=== PATIENT | male | born 1970 | race Caucasian/White ===

== ENCOUNTER 2017-08-22 14:36 | Inpatient (IN) | payer OTHER ==
[~2017-08-22] VITALS: Ht 177.8 cm; Wt 79.6 kg
[2017-08-22 15:45] LABS: HEMATOCRIT 38.4 % (38.0-50.0); MCH 31.2 PG (29.0-34.0); MCHC 36.5 G/DL (30.0-36.0); MCV 85.5 FL (86-99); PLATELET COUNT 203 K/uL (156-360); RBC DIS.WIDTH-CV 12.1 % (11.8-14.6); RBC DIS.WIDTH-SD 37.9 % (39-53); RED BLOOD COUNT 4.49 M/uL (4.00-5.50); WHITE BLOOD COUNT 11.3 K/uL (4.1-10.2)
[2017-08-22 15:52] LABS: ALBUMIN 4.2 g/dL (3.2-4.8)
[2017-08-22 15:53] LABS: CHLORIDE 99 mEq/L (99-109); POTASSIUM 3.6 mEq/L (3.7-5.4); SODIUM 134 mEq/L (136-147)
[2017-08-22 15:55] LABS: GLUCOSE 167 mg/dL (70-99); TOTAL PROTEIN 6.9 g/dL (6.4-8.3)
[2017-08-22 15:57] LABS: TOTAL BILIRUBIN 0.5 mg/dL (0.0-1.0)
[2017-08-22 15:58] LABS: ALKALINE PHOSPHATASE 73 IU/L (3-129)
[2017-08-22 15:59] LABS: CREATININE 0.8 mg/dL (0.6-1.3); GFR ESTIMATE (CALCULATED) > 59 mL/min/ (58.99-99999)
[2017-08-22 16:00] LABS: AST (GOT) 15 IU/L (2-34); UREA NITROGEN (BUN) 6 mg/dL (9-23)
[2017-08-22 16:01] LABS: ALT (GPT) 14 IU/L (3-49)
[2017-08-22 16:02] LABS: LIPASE 25 U/L (1.0-51.0)
[2017-08-22 16:14] LABS: APPEARANCE CLEAR ((CLEAR)); BILIRUBIN NEGATIVE; BLOOD NEGATIVE; COLOR COLORLESS ((YELLOW)); GLUCOSE (STRIP) 150; KETONES NEGATIVE; LEUKOCYTES NEGATIVE; NITRITE NEGATIVE; PROTEIN (STRIP) NEGATIVE; SPECIFIC GRAVITY 1.006 (1.000-1.030); UCUL ADDED? NO; UROBILINOGEN 0.2 MG/DL (0.2-1.0)
[2017-08-22 17:19] LABS: INTER. NORMALIZED RATIO 1.1
[2017-08-22] MEDS ORDERED: LISINOPRIL5 MG PO (18:00)
[2017-08-22] MEDS ORDERED: HYDROCHLOROTHIA25 MG PO (18:00)
[2017-08-22] MEDS ORDERED: ADULT ASPIRIN81 MG PO (18:01)
[2017-08-22] MEDS ORDERED: METFORMIN HCL1000 MG PO (18:01)
[2017-08-22] MEDS ORDERED: VITAMIN D31000 UNIT PO (18:01)
[2017-08-22 22:24] VITALS: BP 133/71
[2017-08-23 04:15] VITALS: BP 118/65
[2017-08-23 05:59] LABS: HEMATOCRIT 37.7 % (38.0-50.0); MCH 30.3 PG (29.0-34.0); MCHC 34.5 G/DL (30.0-36.0); MCV 87.9 FL (86-99); PLATELET COUNT 206 K/uL (156-360); RBC DIS.WIDTH-CV 12.7 % (11.8-14.6); RBC DIS.WIDTH-SD 40.6 % (39-53); RED BLOOD COUNT 4.29 M/uL (4.00-5.50); WHITE BLOOD COUNT 9.1 K/uL (4.1-10.2)
[2017-08-23 06:35] LABS: CHLORIDE 103 MEQ/L (99-109); CREATININE 0.8 MG/DL (0.6-1.3); GFR ESTIMATE (CALCULATED) > 59 mL/min/ (58.99-99999); GLUCOSE 145 mg/dL (70-99); POTASSIUM 4.1 MEQ/L (3.7-5.4); SODIUM 139 MEQ/L (136-147); UREA NITROGEN (BUN) 8 mg/dL (9-23)
[2017-08-23 07:01] VITALS: BP 119/71
[2017-08-23 15:30] VITALS: BP 128/72; BP 135/67
[2017-08-23 19:24] VITALS: BP 146/71
[2017-08-23 23:17] VITALS: BP 131/70
[2017-08-24 04:03] VITALS: BP 137/63
[2017-08-24 05:57] LABS: CREATININE 0.8 MG/DL (0.6-1.3); GFR ESTIMATE (CALCULATED) > 59 mL/min/ (58.99-99999); UREA NITROGEN (BUN) 11 mg/dL (9-23)
[2017-08-24 06:45] VITALS: BP 136/70
[2017-08-24 11:30] VITALS: BP 121/65
[2017-08-24 15:36] VITALS: BP 119/63
[2017-08-24 18:50] VITALS: BP 134/73
[2017-08-24 23:00] VITALS: BP 117/56
[2017-08-25 03:18] VITALS: BP 115/59
[2017-08-25 05:25] LABS: HEMATOCRIT 37.4 % (38.0-50.0); HEMOGLOBIN 12.9 G/DL (12.5-16.6); MCH 30.8 PG (29.0-34.0); MCHC 34.5 G/DL (30.0-36.0); MCV 89.3 FL (86-99); PLATELET COUNT 190 K/uL (156-360); RBC DIS.WIDTH-CV 12.7 % (11.8-14.6); RBC DIS.WIDTH-SD 41.6 % (39-53); RED BLOOD COUNT 4.19 M/uL (4.00-5.50); WHITE BLOOD COUNT 7.3 K/uL (4.1-10.2)
[2017-08-25 06:00] LABS: CHLORIDE 99 MEQ/L (99-109); CREATININE 0.7 MG/DL (0.6-1.3); GFR ESTIMATE (CALCULATED) > 59 mL/min/ (58.99-99999); GLUCOSE 118 mg/dL (70-99); POTASSIUM 3.8 MEQ/L (3.7-5.4); SODIUM 136 MEQ/L (136-147); UREA NITROGEN (BUN) 8 mg/dL (9-23)
[2017-08-25 06:40] VITALS: BP 118/57
[2017-08-25 12:20] VITALS: BP 122/65
[2017-08-25 15:34] VITALS: BP 123/56
[2017-08-25 19:19] VITALS: BP 118/70
[2017-08-25 23:15] VITALS: BP 154/59
[2017-08-26 03:44] VITALS: BP 126/60
[2017-08-26 06:50] VITALS: BP 112/59
[2017-08-26 09:27] LABS: BASOPHIL (%) 0.2 % (0-1); EOSINOPHIL (%) 3.5 % (0-5); EOSINOPHIL COUNT 0.2 K/uL (0-0.3); HEMATOCRIT 35.8 % (38.0-50.0); IMMATURE GRANULOCYTE (%) 0.2 % (0.0-0.7); LYMPHOCYTE (%) 13.5 % (15-42); LYMPHOCYTE COUNT 0.7 K/uL (1.0-2.8); MCH 30.2 PG (29.0-34.0); MCHC 33.5 G/DL (30.0-36.0); MCV 90.2 FL (86-99); MONOCYTE (%) 6.3 % (3-12); MONOCYTE COUNT 0.3 K/uL (0-0.8); NEUTROPHIL (%) 76.3 % (45-76); NEUTROPHIL COUNT 4.1 K/uL (1.8-6.4); PLATELET COUNT 231 K/uL (156-360); RBC DIS.WIDTH-CV 12.4 % (11.8-14.6); RBC DIS.WIDTH-SD 40.7 % (39-53); RED BLOOD COUNT 3.97 M/uL (4.00-5.50); WHITE BLOOD COUNT 5.4 K/uL (4.1-10.2)
[2017-08-26] MEDS ORDERED: OMEPRAZOLE40 M1 PO (09:31)
[2017-08-26 12:18] VITALS: BP 128/57
[2017-08-26] MEDS ORDERED: TRAMADOL HCL50 MG PO (14:16)
[2017-08-26 15:15] VITALS: BP 122/61
== END 2017-08-26 15:54 | disposition home health service (06) | DRG 328 ==
LOC: EME 14:36 → 5EAST 18:24 → EDOF 18:24 → ENRESERV 18:32 → 5EAST 21:12
PROVIDERS: Nurse Practitioner Family; Physician Assistant Medical; Physician Assistant Surgical; Surgery
PROC: 0DU607Z Supplement Stomach with Autologous Tissue Substitute, Open Approach (ICD-10-PCS; principal; 2017-08-22)
DX: K25.5 Chronic or unspecified gastric ulcer with perforation (principal); K66.8 Other specified disorders of peritoneum; I10 Essential (primary) hypertension; R73.03 Prediabetes; Z79.84 Long term (current) use of oral hypoglycemic drugs
CPT/HCPCS: 74177; 80048; 80053; 81003; 82565; 83690; 84520; 85025; 85027; 85610; 85730; 86850; 86900; 86901; 99281; 99285; C9113; J0330; J1170; J1650; J2710; J3010; J7120; J7643; S0074